=== PATIENT | female | born 1995 | race Two or more races ===

== ENCOUNTER 2018-07-10 20:28 | Emergency (ER) | payer OTHER ==
[~2018-07-10] VITALS: Ht 154.9 cm; Wt 61.7 kg
--- NOTE | 2018-07-10 21:25 | NUR ---
PATIENT WALKED INTO ER C/O DYSURIA X3 DAYS. HEMATURIA X1 DAY WITH LOWER ABDOMINAL PAIN AND BACK PAIN. DENIES ANY N/V/D. PATIENT AAOX4. IN NO ACUTE DISTRESS. DENIES ANY CARDIOVASCULAR CONCERN. FALL PRECAUTION PER PROTOCOL.
--- NOTE | 2018-07-10 21:25 | NUR ---
BRENDA CARRASQUILLO at bedside for MSE.
[2018-07-10] MEDS: IBUPROFEN 600 MG TABLET PO ONE (21:38)
[2018-07-10] MEDS: PHENAZOPYRIDINE HCL 100 MG TABLET PO ONE (21:39)
[2018-07-10] MEDS ORDERED: PHENAZOPYRIDINE HCL 100 MG TABLET ONE (21:40)
[2018-07-10] MEDS ORDERED: IBUPROFEN 600 MG TABLET ONE (21:40)
[2018-07-10 21:57] LABS: *BILIRUBIN,URIN NEGATIVE (NEGATIVE); *BLOOD, URINE 3+ (NEGATIVE); *CLARITY,URINE CLOUDY (CLEAR); *COLOR,URINE DARK YELLOW (YELLOW); *KETONES,URINE NEGATIVE (NEGATIVE); *UROBILINOGEN,URINE 0.2 E.U./dl (NORMAL); LEUKOCYTE ESTERASE ,URINE 1+ (NEGATIVE); NITRITE, URINE NEGATIVE (NEGATIVE); UGLUCOSE NEGATIVE (NEGATIVE)
[2018-07-10 22:00] LABS: *URINE HCG, QUAL NEGATIVE (NEGATIVE)
[2018-07-10 22:04] LABS: RBC,URINE 80-100 /HPF (0-3)
[2018-07-10 22:05] LABS: BACTERIA,URINE FEW /HPF (NONE SEEN); SQUAMOUS EPITHELIAL CELL,UR FEW /HPF (NONE SEEN)
[2018-07-10] MEDS ORDERED: CEphaleXIN 500 MG CAPSULE ONE (22:30)
[2018-07-10] MEDS: CEphaleXIN 500 MG CAPSULE PO ONE (22:31)
[2018-07-10 22:33] VITALS: BP 130/70
--- NOTE | 2018-07-10 22:34 | NUR ---
Patient discharged to home in stable conditon. Written and verbal after care instructions given. Patient verbalizes understanding of instructions. Patient ambulated out of the ER with steady gait. All belongings with patient.
== END 2018-07-10 22:35 | disposition home or self-care (01) ==
LOC: ER 20:31
DX: N39.0 Urinary tract infection, site not specified (principal); R31.0 Gross hematuria
CPT/HCPCS: 87086; A4663